=== PATIENT | female | born 1950 | race Caucasian/White ===

== ENCOUNTER 2018-03-28 16:53 | Emergency (ER) | payer MEDICARE, BC ==
--- NOTE | 2018-03-28 17:55 | EDM.PDOC ---
ED HPI GENERAL MEDICAL PROBLEM - General Chief Complaint: General Stated Complaint: DIVERTICULITIS Time Seen by Provider: 03/28/18 17:40 Source of Information: Reports: Patient, Family History Limitations: Reports: No Limitations - History of Present Illness INITIAL COMMENTS - FREE TEXT/NARRATIVE: 67-year-old female with chronic recurring diverticulitis was diagnosed [address] confirmed that she has descending colon diverticulitis. She was placed on metronidazole and levofloxacin, is on her seventh day of antibiotics and not feeling well. She feels like she has some urinary urgency but doesn't pass much urine, no dysuria. Her abdominal pain resolved 2 days ago. She had fevers the day after starting antibiotic but those have resolved as well. She has a [address] tomorrow when she just wants to make sure she is not having "kidney failure" or some other complication she is unaware of. A bladder scan was done by nursing which showed less than 100 mL of urine. Onset: Gradual Severity: Mild Associated Symptoms: Reports: Malaise, Other (Mild dizziness ). Denies: Fever/ Chills, Headaches, Nausea/Vomiting ( decreased appetite), Shortness of Breath - Related Data Allergies Allergy/AdvReac Type Severity Reaction Status Date / Time No Known Allergies Allergy Verified 03/28/18 17:13 Home Meds: Home Meds Calcium Carbonate [Calcium] 03/28/18 [History] Cholecalciferol (Vitamin D3) [Vitamin D] 03/28/18 [History] Levofloxacin 03/28/18 [History] Lisinopril 20 mg PO DAILY 03/28/18 [History] Lisinopril/Hydrochlorothiazide [Lisinopril-Hctz 20-25 mg Tab] 1 tab PO DAILY [History] Omeprazole 20 mg PO DAILY 03/28/18 [History] metFORMIN [Glucophage] 1,000 mg PO BID 03/28/18 [History] metroNIDAZOLE [Metronidazole] 03/28/18 [History] Past Medical History Cardiovascular History: Reports: High Cholesterol, Hypertension Gastrointestinal History: Reports: Diverticulosis [employer] History: Reports: Musculoskeletal History: Reports: Arthritis Endocrine/Metabolic History: Reports: Diabetes, Type II Oncologic (Cancer) History: Reports: Other (See Below) Other Oncologic History: uterus cancer - Past Surgical History GI Surgical History: Reports: Appendectomy Female Surgical History: Reports: Section, Hysterectomy Musculoskeletal Surgical History: Reports: Knee Replacement Social & Family History - Tobacco Use Smoking Status *Q: Never Smoker - Caffeine Use Caffeine Use: Reports: Tea - Recreational Drug Use Recreational Drug Use: No ED ROS GENERAL - Review of Systems Review Of Systems: See Below Constitutional: Reports: Malaise, Decreased Appetite HEENT: Reports: No Symptoms Respiratory: Reports: No Symptoms Cardiovascular: Reports: No Symptoms GI/Abdominal: Reports: Decreased Appetite. Denies: Nausea, Vomiting : Reports: Urgency Skin: Denies: Rash Neurological: Reports: Dizziness. Denies: Headache Psychiatric: Reports: No Symptoms ED EXAM, GENERAL - Physical Exam Exam: See Below Exam Limited By: No Limitations General Appearance: Alert, No Apparent Distress Respiratory/Chest: No Respiratory Distress GI/Abdominal: Soft, Non-Tender Neurological: Alert, Oriented Psychiatric: Normal Affect, Normal Mood Skin Exam: Warm, Dry Course - Vital Signs Last Recorded V/S: Last Vital Signs Temp 98.2 F 03/28/18 17:13 Pulse 122 H 03/28/18 17:13 Resp 16 03/28/18 17:13 BP 153/78 H 03/28/18 17:13 Pulse Ox 100 03/28/18 17:13 - Orders/Labs/Meds Orders: Active Orders 24 hr Category Date Time Status UA W/MICROSCOPIC [URIN] Urgent Lab 03/28/18 18:00 Ordered Labs: Laboratory Tests 03/28/18 03/28/18 03/28/18 Range/Units 18:00 18:00 18:00 WBC 10.4 (4.5-11.0) K/uL RBC 4.80 (3.30-5.50) M/uL Hgb 10.8 L (12.0-15.0) g/dL Hct 35.0 L (36.0-48.0) % MCV 73 L (80-98) fL MCH 23 L (27-31) pg MCHC 31 L (32-36) % Plt Count 372 (150-400) K/uL Neut % (Auto) 77 H (36-66) % Lymph % (Auto) 13 L (24-44) % [place] % (Auto) 9 H (2-6) % Eos % (Auto) 1 L (2-4) % Baso % (Auto) 0 (0-1) % Sodium 137 L (140-148) mmol/L Potassium 4.3 (3.6-5.2) mmol/L Chloride 101 (100-108) mmol/L Carbon Dioxide 28 (21-32) mmol/L Anion Gap 12.3 (5.0-14.0) mmol/L BUN 29 H (7-18) mg/dL Creatinine 1.3 H (0.6-1.0) mg/dL Est Cr Clr Drug Dosing 38.23 mL/min Estimated GFR (MDRD) 41 L (>60) Glucose 165 H (74-106) mg/dL Calcium 8.8 (8.5-10.1) mg/dL Urine Color Yellow Urine Appearance Cloudy Urine pH 5.0 (4.5-8.0) Ur Specific [place] 1.025 (1.008-1.030) Urine Protein Negative (NEGATIVE) mg/dL Urine Glucose (UA) Normal (NEGATIVE) mg/dL Urine Ketones Negative (NEGATIVE) mg/dL Urine Occult Blood Negative (NEGATIVE) Urine Nitrite Negative (NEGATIVE) Urine Bilirubin Negative (NEGATIVE) Urine Urobilinogen Normal (NORMAL) mg/dL Ur Leukocyte Esterase Large (NEGATIVE) Urine RBC 0-5 (0-5) Urine WBC 5-10 H (0-5) Ur Epithelial Cells Many Amorphous Sediment Not seen Urine Bacteria Few Urine Mucus Not seen Urine Other - Re-Assessments/Exams Free Text/Narrative Re-Assessment/Exam: 03/28/18 17:54 Discuss options of treatment including stopping the antibiotic, continuing the antibiotic and dealing with side effects, or more investigation to reassure that her electrolytes are normal and kidney function is adequate. A UA was also obtained. Patient is planning on his [address] so wanted reassurance , CBC and BMP along with the UA was ordered. 03/28/18 18:26 UA was negative, CBC revealed a normal white count. Her hemoglobin was slightly low at 10.8. BMP was also reassuring with just a slightly elevated creatinine and BUN. Copies of the labs are given to the patient, she is going to recheck with her primary provider when she gets home and hold antibiotics for the next 24 hours while traveling. Departure - Departure Time of Disposition: 18:34 Disposition: Home, Self-Care 01 Condition: Good Clinical Impression: Medication side effects, Dizziness - Discharge Information Instructions: Antibiotic Medicine, Adult, [id number]-Csfe Referrals: PCP,None [Primary Care Provider] - Forms: ED Department Discharge Care Plan Goals: Hold antibiotics for the next 24 hours, continue with hydration and increase activity and diet as tolerated. Consider rechecking in the next 48-72 hours if not improving satisfactorily. - My Orders Last 24 Hours: My Active Orders 03/28/18 18:00 UA W/MICROSCOPIC [URIN] Urgent - Assessment/Plan Last 24 Hours: My Active Orders 03/28/18 18:00 UA W/MICROSCOPIC [URIN] Urgent
== END 2018-03-28 18:34 | disposition home or self-care (01) ==
LOC: JP.ED 16:53
DX: R42 Dizziness and giddiness (principal); T37.8X5A Adverse effect of other specified systemic anti-infectives and antiparasitics, initial encounter; I10 Essential (primary) hypertension; E11.9 Type 2 diabetes mellitus without complications; Z79.84 Long term (current) use of oral hypoglycemic drugs; Z79.899 Other long term (current) drug therapy
CPT/HCPCS: 36415; 80048; 81001; 85025; 99284